=== PATIENT | male | born 1995 | race Caucasian/White ===

== ENCOUNTER 2022-12-17 14:07 | Emergency (ER) | payer SELFPAY ==
[~2022-12-17] VITALS: Ht 172.7 cm; Wt 95.4 kg
[2022-12-17] MEDS ORDERED: METH-1164 PO (15:32)
[2022-12-17 16:03] VITALS: BP 115/63
== END 2022-12-17 16:16 | disposition home or self-care (01) ==
LOC: M ED 14:07
DX: S46.812A Strain of other muscles, fascia and tendons at shoulder and upper arm level, left arm, initial encounter (principal); R20.2 Paresthesia of skin

== ENCOUNTER → 2023-01-02 | Outpatient (REF) ==
[~2023-01-02] MED LIST: METH-1164 PO
== END ==
LOC: M EMP 14:05
PROVIDERS: ATTEND Family Medicine
DX: Z53.9 Procedure and treatment not carried out, unspecified reason (principal)

== ENCOUNTER 2023-06-04 23:46 | Emergency (ER) | payer SELFPAY ==
[~2023-06-04] VITALS: Ht 172.7 cm; Wt 94.1 kg
[2023-06-04 23:47] VITALS: BP 138/93; TEMP 97.4; O2SAT 98
[2023-06-05 00:46] LABS: BASO # 0.1 10^3/uL (0.0-0.2); BASO % 0.5 % (0.0-1.0); EOS # 0.1 10^3/uL (0.0-0.5); EOS % 0.7 % (0.0-3.0); HEMATOCRIT 44.8 % (42.0-52.0); HEMOGLOBIN 15.3 g/dl (13.5-17.5); LYMPH % 30.9 % (24.0-44.0); MEAN CORPUSCULAR HEMOGLOBIN 28.8 pg (27.0-33.0); MEAN CORPUSCULAR HGB CONC 34.2 g/dl (32.0-36.5); MEAN CORPUSCULAR VOLUME 84.2 fl (80.0-96.0); MONO # 0.9 10^3/uL (0.0-0.8); MONO % 9.1 % (2.0-8.0); NEUTROPHILS # 5.8 10^3/uL (1.5-8.5); NEUTROPHILS % 58.5 % (36.0-66.0); PLATELET COUNT, AUTOMATED 201 10^3/uL (150-450); RED BLOOD COUNT 5.32 10^6/uL (4.30-6.10); WHITE BLOOD COUNT 9.8 10^3/uL (4.0-10.0)
[2023-06-05 01:03] LABS: CK-MB VALUE MASS 1.5 NG/ML (<3.6)
[2023-06-05 01:05] LABS: BLOOD UREA NITROGEN 22 MG/DL (9-23); CARBON DIOXIDE LEVEL 28 MMOL/L (20-31); CHLORIDE LEVEL 104 MMOL/L (98-107); CREATININE FOR GFR 0.91 MG/DL (0.70-1.30); GLOMERULAR FILTRATION RATE > 60.0 (>60); GLUCOSE, FASTING 105 MG/DL (60-100); POTASSIUM SERUM 3.8 MMOL/L (3.5-5.1); SODIUM LEVEL 140 MMOL/L (136-145)
[2023-06-05 01:08] LABS: CPK CREATINE PHOSPHOKINASE 206 U/L (46-171); MB/CK RELATIVE INDEX 0.72 (< OR =4)
== END 2023-06-05 04:48 | disposition left against medical advice (07) ==
LOC: M ED 23:46
DX: R07.9 Chest pain, unspecified (principal); Z53.21 Procedure and treatment not carried out due to patient leaving prior to being seen by health care provider